=== PATIENT | female | born 1945 | race Two or more races ===

== ENCOUNTER 2020-04-22 15:21 | Emergency (ER) | payer OTHER ==
[~2020-04-22] VITALS: Ht 152.4 cm; Wt 84.4 kg
[2020-04-22] MEDS ORDERED: TRICOR48 MG PO (15:46)
[2020-04-22] MEDS ORDERED: OMEGA 3 1,0001 EACH PO (15:46)
[2020-04-22] MEDS ORDERED: INTEGRA CAPSUL1 EACH PO (15:46)
[2020-04-22] MEDS ORDERED: VITAMIN E400 UNI6 PO (15:47)
[2020-04-22] MEDS ORDERED: VITAMIN B122500 MCG PO (15:47)
[2020-04-22] MEDS ORDERED: AVALIDE 300-121 EACH PO (15:47)
[2020-04-22] MEDS ORDERED: VITAMIN D3 COM1 EACH PO (15:48)
[2020-04-22] MEDS ORDERED: FLONASE ALLERG9.9 ML NASAL (19:04)
[2020-04-22] MEDS ORDERED: MUCINEX1200 MG PO (19:04)
== END 2020-04-22 19:22 ==
LOC: ER 15:21
DX: H53.8 Other visual disturbances (principal)

== ENCOUNTER 2020-08-15 22:01 | Emergency (ER) | payer OTHER ==
[~2020-08-15] VITALS: Ht 154.9 cm; Wt 82.6 kg
[~2020-08-15 22:01] MED LIST: AVALIDE 300-121 EACH PO; FLONASE ALLERG9.9 ML NASAL; INTEGRA CAPSUL1 EACH PO; MUCINEX1200 MG PO; OMEGA 3 1,0001 EACH PO; TRICOR48 MG PO; VITAMIN B122500 MCG PO; VITAMIN D3 COM1 EACH PO; VITAMIN E400 UNI6 PO
[2020-08-16] MEDS ORDERED: CIPRO500 MG PO (03:36)
== END 2020-08-16 05:31 | disposition home or self-care (01) ==
LOC: ER 22:01
DX: R31.0 Gross hematuria (principal)

== ENCOUNTER → 2021-05-08 | Outpatient (CLI) | payer OTHER ==
[~2021-05-08] MED LIST changes: +CIPRO500 MG PO
== END | disposition home or self-care (01) ==
LOC: SONOGRAMA 09:15
PROVIDERS: ATTEND Pathology Anatomic Pathology & Clinical Pathology
DX: E06.5 Other chronic thyroiditis (principal)

== ENCOUNTER 2023-04-07 16:36 | Emergency (ER) | payer OTHER ==
[~2023-04-07] VITALS: Ht 160 cm; Wt 78.5 kg
[2023-04-07] MEDS ORDERED: PAXLOVID 150-11 EACH PO (17:24)
== END 2023-04-07 17:36 | disposition home or self-care (01) ==
LOC: ER 16:36
DX: U07.1 COVID-19 (principal)

== ENCOUNTER 2023-09-08 17:40 | Emergency (ER) | payer OTHER ==
[~2023-09-08] VITALS: Ht 162.6 cm; Wt 85.7 kg
[~2023-09-08 17:40] MED LIST changes: +PAXLOVID 150-11 EACH PO
[2023-09-08] MEDS ORDERED: INTESTINEX680 M1 PO (17:50)
[2023-09-08] MEDS ORDERED: TRICOR48 MG PO (17:51)
== END 2023-09-08 21:49 | disposition home or self-care (01) ==
LOC: ER 17:41
DX: K30 Functional dyspepsia (principal)

== ENCOUNTER 2024-11-20 12:30 | Outpatient (CLI) | payer OTHER ==
[~2024-11-20 12:30] MED LIST changes: +INTESTINEX680 M1 PO
== END 2024-11-20 12:34 | disposition home or self-care (01) ==
LOC: SONOGRAMA 12:30
PROVIDERS: ATTEND Pathology Anatomic Pathology & Clinical Pathology
DX: D34 Benign neoplasm of thyroid gland (principal); E04.2 Nontoxic multinodular goiter